=== PATIENT | female | born 1955 | race Caucasian/White ===

== ENCOUNTER 2016-12-12 10:01 | Inpatient (IN) | payer OTHER ==
[~2016-12-12] VITALS: Ht 167.6 cm; Wt 51.0 kg
[~2016-12-12 10:01] MED LIST: ASPI-630 PO; CELE200C PO; CYAN10005 PO; DIAZ5TAB PO; DIPH-121 PO; DULO20CA50 PO; ESOM20CA PO; ESOM40CA PO; HYDR-2766 PO; LACT1CAP29 PO; LINA145C PO; LISI40TA PO; METO50TA2 PO; OXYC-323 PO; PRED15SO46 PO; [UNRECOGNIZED DRUG - CODE] PO
[2016-12-12] MEDS ORDERED: IV NORMAL SALINE 1,000ML 1,000 ML IV SCH (10:24)
[2016-12-12] MEDS ORDERED: 0.9 % SODIUM CHLORIDE 10 ML DISP.SYRIN. IV PRN (10:30)
--- NOTE | 2016-12-12 10:30 | PHYS DOC ---
Past History Past Medical History: GERD, Heart Disease, Other Past Surgical History: Hysterectomy, Knee Replacement, Pacemaker Alcohol Use: None Drug Use: None Adult General Chief Complaint Chief Complaint: HEMATEMESIS/VOMITING BLOOD [facility] HPI Patient is a 61-year-old female here in the emergency department for refill for her chronic narcotic medication oxycodone. Patient has been on chronic narcotics for great deal of time given her chronic left knee pain. She has been tell us that she has been on narcotics secondary to chronic knee pain which she supposedly going to get definitive replacement therapy by a local orthopedic surgeon. She gets her medications from the [place] and only is a 30 day supply took it too aggressively this month and is oriented. This morning in an attempt to treat her discomfort took a dose of aspirin although she knows that she should not take aspirin secondary to her issues with erosive gastritis and peptic ulcer disease she had one episode of nausea and vomiting with hematemesis. She denies any abdominal pain, chest pain, shortness breath or other symptoms. She is in a great deal of pain secondary to her inability to tolerate the oral aspirin and not having oxycodone available. Patient denies any chills, fevers or other symptoms of withdrawal. Patient is very teary-eyed giving history. He also relates a story of having her pacemaker chest wall pocket moved as she lost weight and had migrated to under the axilla and mid recently replaced it to the anterior chest wall 6 weeks ago. She was given tramadol for the symptoms which did improve her symptoms. Physician is from [facility] out of [facility] Dr. Bishop Review of Systems Review of Systems Constitutional: Denies fever or chills [] Eyes: Denies change in visual acuity, redness, or eye pain [] HENT: Denies nasal congestion or sore throat [] Respiratory: Denies cough or shortness of breath [] Cardiovascular: No additional information not addressed in HPI [] GI: Denies abdominal pain, patient complains of nausea vomiting with blood- streaked mucus no diarrhea : Denies dysuria or hematuria [] Musculoskeletal she complains of lower extremity pain, that is chronic in nature. Integument: Denies rash or skin lesions [] Neurologic: Denies headache, focal weakness or sensory changes [] Endocrine: Denies polyuria or polydipsia [] Allergies Allergies Allergies Coded Allergies Type Severity Reaction Last Updated Verified Sulfa (Sulfonamide Antibiotics) Allergy Intermediate 01/07/16 Yes morphine Allergy Intermediate 01/07/16 Yes prochlorperazine Allergy Intermediate 01/07/16 Yes amlodipine Allergy Mild Swelling 01/07/16 Yes cimetidine Adverse Reaction Intermediate Constipation 01/07/16 Yes Physical Exam Physical Exam Constitutional: Well developed, well nourished, no acute distress, non-toxic appearance. [] HENT: Normocephalic, atraumatic, bilateral external ears normal, oropharynx moist, no oral exudates, nose normal. [] Eyes: PERRLA, EOMI, conjunctiva normal, no discharge. [] Neck: Normal range of motion, no tenderness, supple, no stridor. [] Cardiovascular:Heart rate regular rhythm, no murmur [] Lungs & Thorax: Bilateral breath sounds clear to auscultation [] Abdomen: Bowel sounds normal, soft, no tenderness, no masses, no pulsatile masses. [] Skin: Warm, dry, no erythema, no rash. [] Back: No tenderness, no CVA tenderness. [] Extremities: No tenderness, no cyanosis, no clubbing, ROM intact, no edema. [] Neurologic: Alert and oriented X 3, normal motor function, normal sensory function, no focal deficits noted. [] Psychologic: Affect normal, judgement normal, mood normal. [] EKG EKG []EKG timed 10:57 AM demonstrates a heart rate of 71 normal sinus rhythm with frequent PVCs. Was 170 which is normal. QRS width is 76 which is normal QTC is 470 which is mildly elevated. There is a left axis deviation noted with this EKG and some nonseptic T-wave inversions in the anterior leads. EKG read by me Dr. Colunga Radiology/Procedures Radiology/Procedures [] Course & Med Decision Making Course & Med Decision Making Pertinent Labs and Imaging studies reviewed. (See chart for details) Patient presents with intractable nausea and vomiting after using aspirin this morning to treat her pain although she is supposedly using daily oxycodone she ran out of her medications yesterday. Her symptoms is gotten progressively worse to the point where she was intractable pain was so bad she is inconsolable. She was crying upon arrival complaining about chronic knee pain. She had one episode of nausea and vomiting described as hematemesis. Although she has not vomited here in the emergency department her laboratory work as been ordered to rule out GI bleed. Time is now 11 AM patient is still having pain but much improved. With any kind of movement of the left shoulder she complains of the chest wall pain which she had the pouch of her pacemaker changed. She has been given a dose of Ativan to help with her anxiety and a dose of Dilaudid to help with her symptoms. Time is now 11:45 AM although the patient's feeling markedly better he has been is concerning we have not given her more narcotics. He has been and I sat and talked about long-term treatment for chronic narcotic use. I described her need to be admitted to the hospital to help her deal with the symptoms and attempt to use other modalities other than opiate narcotics to treat her symptoms. Although she is still complaining of pain is markedly improved and as I described to the it is subjective in nature. Her vital signs did not indicate that she is going through acute withdrawal at this point as she is not tachycardic she is not showing any signs of piloerection or chills. Patient has no vomiting at this time Reviewed her laboratory work which demonstrates Laboratory Tests Test 12/12/16 10:55 White Blood Count 6.8 x10^3/uL (4.0-11.0) Red Blood Count 4.19 x10^6/uL (3.50-5.40) Hemoglobin 12.4 g/dL (12.0-15.5) Hematocrit 37.5 % (36.0-47.0) Mean Corpuscular Volume 89 fL (79-100) Mean Corpuscular Hemoglobin 30 pg (25-35) Mean Corpuscular Hemoglobin Concent 33 g/dL (31-37) Red Cell Distribution Width 15.2 % (11.5-14.5) H Platelet Count 275 x10^3/uL (140-400) Neutrophils (%) (Auto) 62 % (31-73) Lymphocytes (%) (Auto) 29 % (24-48) Monocytes (%) (Auto) 8 % (0-9) Eosinophils (%) (Auto) 1 % (0-3) Basophils (%) (Auto) 1 % (0-3) Neutrophils # (Auto) 4.2 x10^3uL (1.8-7.7) Lymphocytes # (Auto) 2.0 x10^3/uL (1.0-4.8) Monocytes # (Auto) 0.5 x10^3/uL (0.0-1.1) Eosinophils # (Auto) 0.1 x10^3/uL (0.0-0.7) Basophils # (Auto) 0.1 x10^3/uL (0.0-0.2) Sodium Level 143 mmol/L (136-145) Potassium Level 3.9 mmol/L (3.5-5.1) Chloride Level 108 mmol/L (98-107) H Carbon Dioxide Level 32 mmol/L (21-32) Anion Gap 3 (6-14) L Blood Urea Nitrogen 11 mg/dL (7-20) Creatinine 0.9 mg/dL (0.6-1.0) Estimated GFR (Cockcroft-Gault) 63.2 BUN/Creatinine Ratio 12 (6-20) Glucose Level 103 mg/dL (70-99) H Calcium Level 9.1 mg/dL (8.5-10.1) Total Bilirubin 0.3 mg/dL (0.2-1.0) Aspartate Amino Transferase (AST) 19 U/L (15-37) Alanine Aminotransferase (ALT) 24 U/L (14-59) Alkaline Phosphatase 98 U/L (46-116) Creatine Kinase 44 U/L (26-192) Creatine Kinase MB (Mass) < 0.5 ng/mL (0.0-3.6) Creatine Kinase MB Relative Index 1.1 % (0-4) Troponin I Quantitative < 0.017 ng/mL (0-0.055) Total Protein 6.1 g/dL (6.4-8.2) L Albumin 3.1 g/dL (3.4-5.0) L Albumin/Globulin Ratio 1.0 (1.0-1.7) Lipase 114 U/L (73-393) []Patient's troponin is negative, lipase is normal, patient is an elevated glucose. Patient's CBC is normal. He has a patient's continued condition although I do not she is is delirious secondary to pain out of control I believe there is some issue with chronic narcotic use although not to follow the patient that we need to address and a more serious manner. Patient's family is willing to be admitted to the hospital to help while the symptoms are still present and encouraged the family to have a discussion with the primary care physician about the intent of getting her off narcotics completely. I also encouraged family and if they are not happy with the relation to have with her present orthopedic surgeon believes is nothing wrong with the knee that he was placed back in 2016 to find another opinion. Preconstruction Manager note: Hospital livestock nutrition territory manager time 11:59 AM Preconstruction Manager called at of the service Dr. Gerry ARRIAGA return call at 12 3 PM Consult called back at Discussed the case I presented and they agreed with admission. Time of acceptance 12:03 PM agreed with treatment for hematemesis and likely narcotic withdrawal symptoms.. Dragon Disclaimer Dragon Disclaimer This chart was dictated in whole or in part using Voice Recognition software in a busy, high-work load, and often noisy Emergency Department environment. It may contain unintended and wholly unrecognized errors or omissions. Departure Departure: Impression: Primary Impression: Chest wall pain Additional Impressions: Chronic narcotic use Withdrawal symptoms, drug or narcotic Nausea and vomiting Hematemesis Disposition: ADMITTED INPATIENT Admitting Physician: Humza Lenz Condition: GUARDED Referrals: FARHAN HERNANDEZ DO (PCP) Problem Qualifiers ALBER COLUNGA MD Dec 12, 2016 10:30
[2016-12-12] MEDS ORDERED: ONDANSETRON PF 4 MG/2 ML VIAL. IV ONE (10:45)
[2016-12-12] MEDS: HYDROmorphone PF 1 MG/ML DISP.SYRIN IV/SQ PRN ×2 (10:58→15:04)
--- NOTE | 2016-12-12 11:07 | RAD ---
EXAM: Abdomen acute complete. HISTORY: Nausea and vomiting. COMPARISON: 01/12/2015. FINDINGS: A frontal view of the chest and frontal upright and supine views of the abdomen are obtained. There is no infiltrate, effusion or pneumothorax. The heart is normal in size. There is a cardiac pacemaker with leads terminating in expected position. There is increased opacity overlying the lateral right mid thorax due to overlying artifact. There is gas and stool within the colon. There are air-filled loops of nondistended small bowel. There is no evidence of obstruction. There is no free air. There is degenerative change throughout the spine. There is curvilinear calcification overlying the left abdomen and sacrum. IMPRESSION: 1. No acute pulmonary finding. 2. Nonobstructive bowel gas pattern.
[2016-12-12 11:21] LABS: BASO # 0.1 x10^3/uL (0.0-0.2); BASO % 1 % (0-3); EOS # 0.1 x10^3/uL (0.0-0.7); EOS % 1 % (0-3); HEMATOCRIT 37.5 % (36.0-47.0); HEMOGLOBIN 12.4 g/dL (12.0-15.5); LYMPH % 29 % (24-48); MEAN CORPUSCULAR HEMOGLOBIN 30 pg (25-35); MEAN CORPUSCULAR HGB CONC 33 g/dL (31-37); MEAN CORPUSCULAR VOLUME 89 fL (79-100); MONO # 0.5 x10^3/uL (0.0-1.1); MONO % 8 % (0-9); NEUT # 4.2 x10^3uL (1.8-7.7); NEUT % 62 % (31-73); PLATELET COUNT 275 x10^3/uL (140-400); RED BLOOD COUNT 4.19 x10^6/uL (3.50-5.40); RED CELL DISTRIBUTION WIDTH 15.2 % (11.5-14.5); WHITE BLOOD COUNT 6.8 x10^3/uL (4.0-11.0)
[2016-12-12] MEDS ORDERED: LORazepam 2 MG/ML VIAL IV ONE (11:30)
[2016-12-12 11:43] LABS: ALBUMIN 3.1 g/dL (3.4-5.0); ALK PHOS 98 U/L (46-116); ALT (SGPT) 24 U/L (14-59); ANION GAP 3 (6-14); AST (SGOT) 19 U/L (15-37); BLOOD UREA NITROGEN 11 mg/dL (7-20); BUN/CREATININE RATIO 12 (6-20); CALCIUM 9.1 mg/dL (8.5-10.1); CARBON DIOXIDE 32 mmol/L (21-32); CHLORIDE 108 mmol/L (98-107); CREATINE KINASE 44 U/L (26-192); CREATININE 0.9 mg/dL (0.6-1.0); GFR 63.2; GLUCOSE 103 mg/dL (70-99); LIPASE 114 U/L (73-393); POTASSIUM 3.9 mmol/L (3.5-5.1); SODIUM 143 mmol/L (136-145); TOTAL BILIRUBIN 0.3 mg/dL (0.2-1.0); TOTAL PROTEIN 6.1 g/dL (6.4-8.2)
[2016-12-12] MEDS ORDERED: ONDANSETRON PF 4 MG/2 ML VIAL. IV PRN (12:15)
[2016-12-12 12:30] LABS: BILIRUBIN,URINE NEG (NEG); CLARITY,URINE CLEAR; COLOR,URINE STRAW; GLUCOSE,URINE NEG (NEG)
[2016-12-12] MEDS ORDERED: cloNIDine HCL 0.1 MG TABLET PO ONE (12:30)
[2016-12-12 12:31] LABS: BACTERIA,URINE 0 /HPF (0-FEW); NITRITE,URINE NEG (NEG); RBC,URINE 0 /HPF (0-2); SQUAMOUS EPITHELIAL CELL,UR OCC /LPF; UROBILINOGEN,URINE 0.2 mg/dL (0.2 mg/dL); WBC,URINE RARE /HPF (0-4)
--- NOTE | 2016-12-12 12:44 | EKG ---
[address] [address] Test Date: 2016-12-12 Test Time: 10:57:40 Pat Name: NEISHA WILKERSON Department: Room: Gender: F Drug Safety Physician: : [id number] Requested By: ALBER COLUNGA Order Number: [id number] Reading MD: Measurements Intervals [place] Rate: 71 P: 38 VT: 172 QRS: -11 QRSD: 76 T: 2 QT: 440 QTc: 478 Interpretive Statements SINUS RHYTHM VENTRICULAR PREMATURE COMPLEX(ES) ATRIAL PREMATURE COMPLEX(ES) LEFTWARD AXIS PROLONGED QT ABNORMAL ECG RI6.01 No previous ECG available for comparison
[2016-12-12 13:23] VITALS: BP 140/76
[2016-12-12] MEDS ORDERED: HYDR12.53 PO (13:53)
[2016-12-12] MEDS ORDERED: BIOT1CAP3 PO (13:53)
[2016-12-12] MEDS ORDERED: POTA10TA10 PO (13:54)
[2016-12-12] MEDS ORDERED: LINA290C PO (14:03)
[2016-12-12] MEDS ORDERED: METO100T2 PO (14:03)
[2016-12-12] MEDS ORDERED: SPIR25TA3 PO (14:03)
[2016-12-12] MEDS ORDERED: DIAZ5TAB PO (14:03)
[2016-12-12] MEDS ORDERED: PANT40TA3 PO (14:13)
[2016-12-12] MEDS: IV NORMAL SALINE 1,000ML 1,000 ML IV SCH (17:51)
[2016-12-12 18:52] VITALS: BP 100/61
[2016-12-12] MEDS: METOPROLOL TART IMMED RELEASE 50 MG TABLET PO SCH (20:20)
[2016-12-12] MEDS: oxyCODONE/APAP 10/325 1 TAB TABLET PO PRN (20:20)
--- NOTE | 2016-12-12 21:37 | HP ---
ADMIT DATE: 12/12/2016 HISTORY OF PRESENT ILLNESS: The patient is a 61-year-old female patient who was brought to the Emergency Department for refill of her chronic narcotic medication, oxycodone. The patient has been on chronic narcotics for a great deal of time given her chronic left knee pain. She has been on narcotics secondary to chronic knee pain, which she is supposed to be going to get definitive replacement therapy by a local orthopedic surgeon. She apparently underwent first right total knee arthroplasty in 2013 and revision 6 months later and since then has this chronic pain. She is followed by Dr. Najera at [facility]. She apparently ran out of her pain medication that she gets from [facility] for 30-day supply and apparently she took multiple doses of aspirin, although she knows that she should not take aspirin secondary to her issues with erosive gastritis and peptic ulcer and has had recurrent episodes of nausea, vomiting with hematemesis; however, she denied any abdominal pain, chest pain, shortness of breath or other symptoms. She is in a great deal of pain secondary to her inability to tolerate oral aspirin, not having oxycodone available. The patient denied any chills, fever or other symptoms of withdrawal. She also had a permanent pacemaker originally placed about 15 years ago and the generator was changed twice, the last one was done about 6 weeks ago as the pacemaker eroded through the skin and has to be changed to a different position as the certified marine mechanic created a new pocket, as she has lost weight. According to her, her maximum weight was 360 and she is now on only 104. She normally follows with [facility] out of [place], [place] and her primary care physician is ____. PAST MEDICAL HISTORY: Significant for osteoarthritis. She has chronic pain in her right knee for which she underwent a right total knee arthroplasty in 2013. She has what seems to be a revision 6 months later; however, she continued to have pain in this right knee. She also has chronic MRSA. She has coronary artery disease. She has dual chamber pacemaker and has had CABG. She is under the care of Dr. Duran at [facility]. She also has chronic gastroesophageal reflux disease, back pain, B12 deficiency, atrial fibrillation, heart valve issues with open heart surgery and aortic valve repair and congestive heart failure. ALLERGIES: She is allergic to SULFA, AMLODIPINE, FAMOTIDINE, MORPHINE AND COMPAZINE. MEDICATIONS: She is currently on following medications: She is on cyanocobalamin 1000 mcg 1 tablet p.o. daily. She is on diazepam 5 mg daily, lactobacillus for probiotic 2 tablets daily, linaclotide 290 mcg capsule once a day. She is on metoprolol tartrate 100 mg p.o. b.i.d., Protonix 40 mg daily, spironolactone 25 mg daily. REVIEW OF SYSTEMS: The patient denied any blurring of vision. She apparently has cataracts, but denied any glaucoma or macular degeneration. Denied any earache, tinnitus or sensorineural deafness. Denied any nosebleeds, stuffy nose or postnasal drip. Denied any sore throat, sore tongue, toothache, hoarseness of voice or difficulty swallowing. She did have recurrent bouts of nausea, vomiting, initially coffee-ground and then fresh blood. Denied any diarrhea. She has chronic constipation. Denied any dysuria, frequency or hematuria. Denied any chest pain, shortness of breath, orthopnea or paroxysmal nocturnal dyspnea. Denied any cough, phlegm or hemoptysis. Denied any chills, rigors or fever. PHYSICAL EXAMINATION: GENERAL: On arrival to the Emergency Room, she was pale, extremely cachectic, but not jaundiced, cyanosis, lymphadenopathy, or thyromegaly. No jugular venous distension. No lower limb edema. VITAL SIGNS: Her heart rate was 78, blood pressure 146/90, temperature was 98.3, respiratory rate was 16 and oxygen saturation was 100% on room air. HEENT: Showed normocephalic, atraumatic. NECK: Supple. HEART: Showed normal first and second heart sounds with no gallop, rub or murmur. CHEST: Clear to auscultation. No crepitation or rhonchi. ABDOMEN: Scaphoid, soft, nontender. No guarding or rigidity. No organomegaly. Hernial orifices intact. Bowel sounds normal. NEUROLOGIC: She was awake, alert, responding appropriately. All her cranial nerves intact. EXTREMITIES: She moves extremities without difficulty, although she has marked muscle wasting and weakness. LABORATORY DATA: Her lab work on arrival to the Emergency Room showed a white cell count of 6800, hemoglobin 12.4, hematocrit 37.5, MCV 89 and platelet count 275,000. Her chemistry showed a serum sodium of 143, potassium 3.9, chloride 108, bicarbonate 32, anion gap of 3, BUN 11, creatinine 0.9, estimated GFR was 63 mL per minute. Her calcium was 9.1. Total bilirubin, AST, ALT, alkaline phosphatase were normal. Total protein was 6.1, albumin 3.1 and serum lipase 114. Urinalysis was unremarkable. IMPRESSION: In summary, this is a 61-year-old female patient who came with recurrent bouts of nausea, vomiting and hematemesis. She also has chronic narcotic use, chest wall pain that started around pacemaker that was recently moved, she has lost weight and has moved to the left axillary area. She also has withdrawal symptoms. PLAN: To monitor her H and H every 6 hours. Continue with pain medication. Continue with hydromorphone. We will continue with clear liquid diet for now and continue with IV Protonix; if obviously her H and H drops, we will transport her to another facility if she requires upper GI endoscopy. JENIFFER CAMACHO MD DR: GUERLINE/erika JOB#: [id number] / [id number]
[2016-12-12 22:47] LABS: HEMATOCRIT 29.9 % (36.0-47.0); HEMOGLOBIN 9.9 g/dL (12.0-15.5)
[2016-12-12 23:19] VITALS: BP 114/63
[2016-12-13] MEDS: IV NORMAL SALINE 1,000ML 1,000 ML IV SCH (04:27)
[2016-12-13] MEDS: oxyCODONE/APAP 10/325 1 TAB TABLET PO PRN ×2 (05:18→12:29)
[2016-12-13 05:34] VITALS: BP 141/73
[2016-12-13 06:36] LABS: ALBUMIN 2.4 g/dL (3.4-5.0); CALCIUM 8.1 mg/dL (8.5-10.1); CREATININE 0.8 mg/dL (0.6-1.0); GFR 72.4; POTASSIUM 3.7 mmol/L (3.5-5.1); TOTAL BILIRUBIN 0.3 mg/dL (0.2-1.0); TOTAL PROTEIN 4.9 g/dL (6.4-8.2)
[2016-12-13 06:37] LABS: BASO # 0.1 x10^3/uL (0.0-0.2); BASO % 1 % (0-3); EOS # 0.1 x10^3/uL (0.0-0.7); EOS % 2 % (0-3); HEMATOCRIT 31.3 % (36.0-47.0); HEMOGLOBIN 10.6 g/dL (12.0-15.5); LYMPH # 2.8 x10^3/uL (1.0-4.8); LYMPH % 42 % (24-48); MEAN CORPUSCULAR HEMOGLOBIN 30 pg (25-35); MEAN CORPUSCULAR HGB CONC 34 g/dL (31-37); MEAN CORPUSCULAR VOLUME 90 fL (79-100); MONO # 0.6 x10^3/uL (0.0-1.1); MONO % 9 % (0-9); NEUT % 46 % (31-73); PLATELET COUNT 210 x10^3/uL (140-400); RED CELL DISTRIBUTION WIDTH 15.4 % (11.5-14.5); WHITE BLOOD COUNT 6.5 x10^3/uL (4.0-11.0)
[2016-12-13] MEDS ORDERED: LINACLOTIDE 145 MCG CAPSULE. PO SCH (07:00)
[2016-12-13] MEDS: METOPROLOL TART IMMED RELEASE 50 MG TABLET PO SCH (08:23)
[2016-12-13] MEDS ORDERED: diazePAM 5 MG TABLET PO SCH (09:00)
[2016-12-13] MEDS ORDERED: PANTOPRAZOLE 40 MG TABLET. PO SCH (09:00)
[2016-12-13] MEDS ORDERED: CYANOCOBALAMIN (VITAMIN B-12) 1,000 MCG TABLET. PO SCH (09:00)
[2016-12-13] MEDS ORDERED: FLU VACC QS2017-18 (36MOS+)/PF 0.5 ML SYRINGE. VAX IM ONE (09:00)
[2016-12-13] MEDS ORDERED: NON FORMULARY ITEM (Biotin 1 MG) PO SCH (09:00)
[2016-12-13] MEDS ORDERED: SPIRONOLACTONE 25 MG TABLET PO SCH (09:00)
[2016-12-13] MEDS ORDERED: LACTOBACILLUS ACIDOPH & BULGAR 1 TABLET. PO SCH (09:00)
[2016-12-13 12:38] VITALS: BP 159/74
[2016-12-13] MEDS ORDERED: OXYC-328 PO (13:13)
--- NOTE | 2016-12-13 23:48 | DS ---
DATE OF DISCHARGE: 12/13/2016 HOSPITAL COURSE: The patient was admitted through the Emergency Room with complaints of hematemesis. According to her, she ran out of her Percocet and started using aspirin. According to her, she has taken a total of 6 aspirin, although she is intolerant to aspirin and she has had peptic ulcer disease before. She had multiple episodes of vomiting and also according to her, hematemesis, although that was not witnessed in the Emergency Room or while an inpatient here, she remained stable hemodynamically. Her H and H remained stable throughout her stay here, probably some hemodilution due to IV fluids when she came to the Emergency Room. She has been tolerating her food without difficulty. She definitely has no further episodes of nausea, vomiting. She has been up and about and a decision was made to discharge her home, to continue all her medication together with pain medication and also we gave her the name and address, and telephone number of Dr. Xavi Ramirez, clerk specialist to help her with chronic pain. PHYSICAL EXAMINATION: GENERAL: When I saw her this afternoon, she looked well and was clearly in no apparent respiratory distress. She was pale, but no jaundice, cyanosis, lymphadenopathy or thyromegaly. No jugular venous distention. No limb edema. VITAL SIGNS: Her heart rate was 65, blood pressure was 159/74, temperature was 97.8, respiratory rate was 15 and oxygen saturation was 100%. HEENT: Showed normocephalic, atraumatic. NECK: Supple. HEART: Showed normal first and second heart sounds with no gallop, rub or murmur. CHEST: Clear to auscultation. No crepitation or rhonchi. ABDOMEN: Scaphoid, soft, nontender. No guarding or rigidity. No organomegaly. Hernial orifices intact. Bowel sounds normal. NEUROLOGIC: She was awake, alert, responding appropriately. Cranial nerves intact. She moves extremities without difficulty. Her intake over the last 24 hours was 2413, no output recorded. LABORATORY DATA: As of this morning showed a white cell count of 6500, hemoglobin 11, hematocrit 31, MCV 90 and platelet count 210,000 with normal manual differential. Her chemistry showed a serum sodium 146, potassium 3.7, chloride 111, BUN 29, creatinine 6, ____ creatinine 0.8, estimated GFR was 72 mL. Her glucose was 87, calcium was 8.1. Total bilirubin, AST, ALT, alkaline phosphatase were normal. Total protein was 4.9, albumin was 2.4. DISCHARGE MEDICATIONS: The patient was discharged home to continue on following medications: Oxycodone/APAP 10/325 mg one tablet 3 times a day, biotin 1 mg capsule daily, cyanocobalamin for vitamin B12 1000 mcg tablet once a day, diazepam 5 mg daily, Lactobacillus acidophilus 2 capsules once a day, linaclotide 290 mcg p.o. daily, metoprolol tartrate 100 mg twice a day, Protonix 40 mg once a day and spironolactone 25 mg p.o. daily. FINAL DISCHARGE DIAGNOSES: Nonsteroidal anti-inflammatory medication and aspirin-induced upper GI bleed. The hematemesis has not been witnessed in the Emergency Room or in the hospital. The patient's hemoglobin and hematocrit remained stable. She remained hemodynamically stable. She was given clear instruction to avoid nonsteroidal anti-inflammatory medication. Other medical problems include severe osteoarthritis, status post right total knee arthroplasty with revision; coronary artery disease, sick sinus syndrome, status post placement of a permanent pacemaker; chronic gastroesophageal reflux disease, low back pain, B12 deficiency, atrial fibrillation, congestive heart failure. JENIFFER CAMACHO MD DR: GUERLINE/erika JOB#: [id number] / [id number]
== END 2016-12-13 13:03 | disposition home or self-care (01) | DRG 377 ==
LOC: ER 10:01 → ICU 12:10 → UNDOADMIN 12:10
PROVIDERS: ADMIT Internal Medicine; ATTEND Internal Medicine
DX: K92.2 Gastrointestinal hemorrhage, unspecified (principal); E43 Unspecified severe protein-calorie malnutrition; I50.9 Heart failure, unspecified; F19.939 Other psychoactive substance use, unspecified with withdrawal, unspecified; G89.29 Other chronic pain; I48.91 Unspecified atrial fibrillation; M25.562 Pain in left knee; E53.8 Deficiency of other specified B group vitamins; I25.10 Atherosclerotic heart disease of native coronary artery without angina pectoris; K21.9 Gastro-esophageal reflux disease without esophagitis; T39.395A Adverse effect of other nonsteroidal anti-inflammatory drugs [NSAID], initial encounter; T39.015A Adverse effect of aspirin, initial encounter; M19.90 Unspecified osteoarthritis, unspecified site; M54.5 Low back pain; Z96.651 Presence of right artificial knee joint; R07.89 Other chest pain; Z79.891 Long term (current) use of opiate analgesic; Z87.11 Personal history of peptic ulcer disease; Z95.0 Presence of cardiac pacemaker; Z95.1 Presence of aortocoronary bypass graft; Z22.322 Carrier or suspected carrier of Methicillin resistant Staphylococcus aureus; Z88.6 Allergy status to analgesic agent; Z88.1 Allergy status to other antibiotic agents; Z88.2 Allergy status to sulfonamides; Z88.8 Allergy status to other drugs, medicaments and biological substances; Y92.89 Other specified places as the place of occurrence of the external cause; Z90.710 Acquired absence of both cervix and uterus
CPT/HCPCS: 36415; 74022; 80053; 81001; 82553; 82607; 83690; 84443; 84484; 85014; 85018; 85025; 87086; 87641; 90686; 93005; 96361; 96374; 96375; J1170; J2060; J2405; 99285-25; J7030

== ENCOUNTER → 2017-01-18 | Outpatient (CLI) | payer OTHER ==
[~2017-01-18] MED LIST changes: +BIOT1CAP3 PO; +HYDR12.53 PO; +LINA290C PO; +METO100T2 PO; +OXYC-328 PO; +PANT40TA3 PO; +POTA10TA10 PO; +SPIR25TA3 PO
== END | disposition home or self-care (01) ==
LOC: SURG 13:03
PROVIDERS: ATTEND Anesthesiology Pain Medicine
DX: G89.4 Chronic pain syndrome (principal); M25.561 Pain in right knee; I10 Essential (primary) hypertension; F11.20 Opioid dependence, uncomplicated; Z96.651 Presence of right artificial knee joint
CPT/HCPCS: 99204

== ENCOUNTER 2017-05-18 19:23 | Inpatient (IN) | payer OTHER ==
[~2017-05-18] VITALS: Ht 167.6 cm; Wt 60.0 kg
[~2017-05-18 19:23] MED LIST changes: -METO100T2 PO; +METO100T7 PO; -METO50TA2 PO; +METO50TA6 PO
[2017-05-18] MEDS ORDERED: IV NORMAL SALINE 1,000ML 1,000 ML IV ONE (20:00)
[2017-05-18] MEDS ORDERED: LIDO:MAALOX 1:1 20 ML SINGLE DOSE PO ONE (20:00)
[2017-05-18 20:01] LABS: BASO # 0.1 x10^3/uL (0.0-0.2); BASO % 1 % (0-3); EOS % 0 % (0-3); HEMATOCRIT 36.2 % (36.0-47.0); HEMOGLOBIN 11.6 g/dL (12.0-15.5); LYMPH # 1.3 x10^3/uL (1.0-4.8); LYMPH % 9 % (24-48); MEAN CORPUSCULAR HEMOGLOBIN 26 pg (25-35); MEAN CORPUSCULAR HGB CONC 32 g/dL (31-37); MEAN CORPUSCULAR VOLUME 81 fL (79-100); MONO % 7 % (0-9); NEUT # 11.5 x10^3uL (1.8-7.7); NEUT % 83 % (31-73); PLATELET COUNT 239 x10^3/uL (140-400); RED BLOOD COUNT 4.49 x10^6/uL (3.50-5.40); RED CELL DISTRIBUTION WIDTH 15.1 % (11.5-14.5); WHITE BLOOD COUNT 13.8 x10^3/uL (4.0-11.0)
[2017-05-18 20:14] LABS: ALBUMIN 3.9 g/dL (3.4-5.0); ALBUMIN/GLOBULIN RATIO 1.2 (1.0-1.7); CALCIUM 9.7 mg/dL (8.5-10.1); CREATININE 0.9 mg/dL (0.6-1.0); MAGNESIUM 1.8 mg/dL (1.8-2.4); TOTAL BILIRUBIN 0.5 mg/dL (0.2-1.0); TOTAL PROTEIN 7.2 g/dL (6.4-8.2)
[2017-05-18 20:41] LABS: POTASSIUM 2.7 mmol/L (3.5-5.1)
[2017-05-18] MEDS ORDERED: POTASSIUM CHLORIDE 20MEQ 100 ML IV ONE (21:00)
--- NOTE | 2017-05-18 21:07 | PHYS DOC ---
Past History Past Medical History: Anxiety, CAD, Depression, GERD, Heart Disease, Hypertension, Other Past Surgical History: Gastric Bypass, Hysterectomy, Knee Replacement, Pacemaker Alcohol Use: None Drug Use: None Adult General Chief Complaint Chief Complaint: ABDOMINAL PAIN HPI HPI Patient is a 62 year old F who presents with vomiting and abdominal pain. Nasrin states that her symptoms started 3-4 days ago with abdominal pain and vomiting containing blood. She feels that her symptoms have persisted during this time. She has been unable to eat or drink anything other than a small egg drop soup and some crackers. She does have a history of a gastric bypass approximately 14 years ago. She also has chronic pain for which she uses opiate pain medication. She does have regular stools with use of a laxative daily. Her last bowel movement was yesterday and she notes that it was a normal formed brown stool. She denies melena. She has no other associated symptoms at this time. She has no other exacerbating or alleviating factors. Review of Systems Review of Systems Constitutional: Denies fever or chills [] Eyes: Denies change in visual acuity, redness, or eye pain [] HENT: Denies nasal congestion or sore throat [] Respiratory: Denies cough or shortness of breath [] Cardiovascular: No additional information not addressed in HPI [] GI: Negative except history of present illness : Denies dysuria or hematuria [] Musculoskeletal: Denies back pain or joint pain [] Integument: Denies rash or skin lesions [] Neurologic: Denies headache, focal weakness or sensory changes [] Endocrine: Denies polyuria or polydipsia [] All other systems were reviewed and found to be within normal limits, except as documented in this note. Family History Family History No pertinent family medical history was reported Current Medications Current Medications Current medications reviewed Current Medications Medications (Trade) Dose Ordered Sig/Hawa Start Time Stop Time Status Last Admin Dose Admin Multi-Ingredient Mouthwash/Gargle (Gi Cocktail) 20 ml 1X ONCE 05/18/17 20:00 05/18/17 20:01 DC 05/18/17 20:00 20 ML Potassium Chloride 100 ml @ 50 mls/hr 1X ONCE 05/18/17 21:00 05/18/17 22:59 Sodium Chloride 1,000 ml @ 1,000 mls/hr 1X ONCE 05/18/17 20:00 05/18/17 20:59 DC 05/18/17 20:00 1,000 MLS/HR Allergies Allergies Allergies Coded Allergies Type Severity Reaction Last Updated Verified Sulfa (Sulfonamide Antibiotics) Allergy Intermediate 01/07/16 Yes morphine Allergy Intermediate 01/07/16 Yes prochlorperazine Allergy Intermediate 01/07/16 Yes amlodipine Allergy Mild Swelling 01/07/16 Yes cimetidine Adverse Reaction Intermediate Constipation 01/07/16 Yes Physical Exam Physical Exam Constitutional: Well developed, well nourished, mild distress, non-toxic appearance. [] HENT: Normocephalic, atraumatic, Eyes: PERRLA, EOMI, conjunctiva normal, no discharge. [] Neck: Normal range of motion, no tenderness, supple, no stridor. [] Cardiovascular:Heart rate regular rhythm, Lungs & Thorax: Bilateral breath sounds clear to auscultation [] Abdomen: Bowel sounds normal, soft, no masses, no pulsatile masses. [] Mid epigastric tenderness to palpation Skin: Warm, dry, no erythema, no rash. [] Back: No tenderness, no CVA tenderness. [] Extremities: No tenderness, no cyanosis, no clubbing, ROM intact, no edema. [] Neurologic: Alert and oriented X 3, normal motor function, normal sensory function, no focal deficits noted. [] Psychologic: Affect normal, judgement normal, mood normal. [] Current Patient Data Vital Signs Vital Signs Date Time Temp Pulse Resp B/P (MAP) Pulse Ox O2 Delivery O2 Flow Rate FiO2 05/18/17 19:23 97.5 79 22 98 Room Air Vital Signs Date Time Temp Pulse Resp B/P (MAP) Pulse Ox O2 Delivery O2 Flow Rate FiO2 05/18/17 19:23 97.5 79 22 98 Room Air Lab Results Laboratory Tests Test 05/18/17 19:30 05/18/17 19:40 Lipase 69 U/L (73-393) L White Blood Count 13.8 x10^3/uL (4.0-11.0) H Red Blood Count 4.49 x10^6/uL (3.50-5.40) Hemoglobin 11.6 g/dL (12.0-15.5) L Hematocrit 36.2 % (36.0-47.0) Mean Corpuscular Volume 81 fL (79-100) Mean Corpuscular Hemoglobin 26 pg (25-35) Mean Corpuscular Hemoglobin Concent 32 g/dL (31-37) Red Cell Distribution Width 15.1 % (11.5-14.5) H Platelet Count 239 x10^3/uL (140-400) Neutrophils (%) (Auto) 83 % (31-73) H Lymphocytes (%) (Auto) 9 % (24-48) L Monocytes (%) (Auto) 7 % (0-9) Eosinophils (%) (Auto) 0 % (0-3) Basophils (%) (Auto) 1 % (0-3) Neutrophils # (Auto) 11.5 x10^3uL (1.8-7.7) H Lymphocytes # (Auto) 1.3 x10^3/uL (1.0-4.8) Monocytes # (Auto) 1.0 x10^3/uL (0.0-1.1) Eosinophils # (Auto) 0.0 x10^3/uL (0.0-0.7) Basophils # (Auto) 0.1 x10^3/uL (0.0-0.2) Sodium Level 144 mmol/L (136-145) Potassium Level 2.7 mmol/L (3.5-5.1) *L Chloride Level 104 mmol/L (98-107) Carbon Dioxide Level 30 mmol/L (21-32) Anion Gap 10 (6-14) Blood Urea Nitrogen 11 mg/dL (7-20) Creatinine 0.9 mg/dL (0.6-1.0) Estimated GFR (Cockcroft-Gault) 63.0 BUN/Creatinine Ratio 12 (6-20) Glucose Level 120 mg/dL (70-99) H Calcium Level 9.7 mg/dL (8.5-10.1) Magnesium Level 1.8 mg/dL (1.8-2.4) Total Bilirubin 0.5 mg/dL (0.2-1.0) Aspartate Amino Transferase (AST) 22 U/L (15-37) Alanine Aminotransferase (ALT) 18 U/L (14-59) Alkaline Phosphatase 116 U/L (46-116) Total Protein 7.2 g/dL (6.4-8.2) Albumin 3.9 g/dL (3.4-5.0) Albumin/Globulin Ratio 1.2 (1.0-1.7) EKG EKG Poor tracing due to motion artifact. Normal sinus rhythm with no ST changes noted Course & Med Decision Making Course & Med Decision Making Pertinent Labs and Imaging studies reviewed. (See chart for details) She was given pain medication for her chronic knee pain not her abdominal pain. She had minimal abdominal findings on exam including minimal tenderness to palpation. Imaging was deferred at this time. Dragon Disclaimer Dragon Disclaimer This electronic medical record was generated, in whole or in part, using a voice recognition dictation system. Departure Departure: Impression: Primary Impression: Upper GI bleed Additional Impressions: Gastritis Hypokalemia Disposition: ADMITTED INPATIENT Condition: STABLE Referrals: FARHAN HERNANDEZ DO (PCP) Problem Qualifiers Additional Impressions: Gastritis Gastritis type: unspecified gastritis Chronicity: acute Gastritis bleeding : with bleeding Qualified Codes: K29.01 - Acute gastritis with bleeding HIMANSHU SOUSA MD May 18, 2017 21:07
[2017-05-18] MEDS ORDERED: ELECTROLYTE (NON-ICU) PROTOCOL MC PRN (22:00)
[2017-05-18] MEDS ORDERED: ONDANSETRON PF 4 MG/2 ML VIAL. IV PRN (22:00)
[2017-05-18] MEDS ORDERED: PANTOPRAZOLE IV 40 MG VIAL. IVP ONE (22:30)
[2017-05-18 23:30] VITALS: BP 163/65
--- NOTE | 2017-05-19 00:06 | NUR ---
The patient, NEISHA WILKERSON, 62 y/o, F admitted by JENIFFER CAMACHO MD, was given written information regarding hospital policies, unit procedures and contact persons. Valuables were checked and logged. Will continue to monitor.
[2017-05-19] MEDS ORDERED: POTASSIUM CL 20MEQ D5-0.45NACL 1,000 ML IV SCH (00:30)
[2017-05-19] MEDS ORDERED: TRAM50TA PO (01:15)
[2017-05-19 05:25] VITALS: BP 161/74
--- NOTE | 2017-05-19 05:27 | NUR ---
Pt forgetful at times. Asked what day it was and states, "Well I don't know. But it's my daughter's birthday month." Pt then looked at her ID bracelet when asked her name and date of . Will continue to monitor.
[2017-05-19 07:44] LABS: CALCIUM 8.6 mg/dL (8.5-10.1); CREATININE 0.6 mg/dL (0.6-1.0); GFR 100.6; POTASSIUM 3.3 mmol/L (3.5-5.1)
[2017-05-19 07:46] LABS: BASO % 0 % (0-3); EOS % 0 % (0-3); HEMATOCRIT 30.3 % (36.0-47.0); HEMOGLOBIN 9.9 g/dL (12.0-15.5); LYMPH # 1.4 x10^3/uL (1.0-4.8); LYMPH % 17 % (24-48); MEAN CORPUSCULAR HEMOGLOBIN 26 pg (25-35); MEAN CORPUSCULAR HGB CONC 33 g/dL (31-37); MEAN CORPUSCULAR VOLUME 81 fL (79-100); MONO # 0.9 x10^3/uL (0.0-1.1); MONO % 10 % (0-9); NEUT # 6.2 x10^3uL (1.8-7.7); NEUT % 73 % (31-73); PLATELET COUNT 199 x10^3/uL (140-400); RED BLOOD COUNT 3.75 x10^6/uL (3.50-5.40); RED CELL DISTRIBUTION WIDTH 15.2 % (11.5-14.5); WHITE BLOOD COUNT 8.6 x10^3/uL (4.0-11.0)
[2017-05-19 09:57] VITALS: BP 172/82
[2017-05-19] MEDS ORDERED: POTASSIUM CHLORIDE 20 MEQ/15 ML ORAL LIQUID. PO ONE (10:00)
[2017-05-19] MEDS: HYDROmorphone PF 2 MG/ML VIAL IV PRN ×3 (10:15→18:32)
[2017-05-19] MEDS: POTASSIUM CL 40MEQ D5-0.45NACL 1,000 ML IV SCH ×2 (10:24→21:43)
--- NOTE | 2017-05-19 10:28 | NUR ---
Pt complaining of pain /10 "throat, neck, and stomach." Pt states that the fentanyl is giving her a headache. Called Dr. Lenz and received orders to administer Dilaudid and also to change her IVF to D51/2NS+40K and to administer potassium oral solution. Pt agreed to take medicine. Once this nurse administered Dilaudid, pt began screaming, "Oh it's in my head and now the back of my head and now... Oh, wow, the pain is gone!" Pt then stated, "I need to pee." This nurse began to assist the pt to the bathroom, but pt decided to lay back down in bed. This nurse asked the pt if she had to use the restroom, the pt stated, "No I will use it in a little bit." The pt laid down at the foot of the bed. This nurse did a neuro exam on the pt, the pt's strength is equal bilaterally and can answer person, place and time, but then when asked what her date of was, the pt stated, "I [place] a [place] at 15 years old... I pledge of allegience to the flag of the [place]... Yay!" And then began to clap her hands and wave her hands in the air while her eyes were closed. This nurse assisted the pt to move back up into bed where the head of the bed was. Bed alarm is on at this time due to safety reasons. Pt looked up at this nurse and stated, "Oh the pain is gone... There's my teeth, there's my teeth, there's my teeth... And there's my ears!" Will CTM.
[2017-05-19 14:35] VITALS: BP 144/89
[2017-05-19] MEDS ORDERED: PANTOPRAZOLE IV 40 MG VIAL. IVP ONE (17:00)
--- NOTE | 2017-05-19 18:52 | HP ---
ADMIT DATE: 05/18/2017 HISTORY OF PRESENT ILLNESS: The patient is a 62-year-old female patient who was admitted to the Emergency Room with a complaint of recurrent bouts of nausea, vomiting and abdominal pain. According to the patient, her symptoms started about last with abdominal pain, vomiting containing blood. She feels that her symptoms have persisted during this time. She has been unable to eat or drink anything other than small egg drop soup and some crackers. She does have a history of gastric bypass approximately 14 years ago. She also has chronic pain for which she uses opiates and pain medication. Apparently, she did have a bowel movement and her last bowel movement was the day before admission that was normal formed stool without any melena or hematochezia. She stated that she has not been taking any nonsteroidal anti-inflammatory medication as she had an episode of similar problem induced by nonsteroidal and was advised against them before. She was evaluated extensively in the Emergency Room and was found to have H and H of 11.6 and 36.2, which is not really far away from her previous admissions here in 2017. She was found to be extremely hypokalemic with a potassium of 2.7 and unfortunately was unable to tolerate potassium by mouth, so we are finishing it with IV and she was admitted to replenish her potassium to follow her closely and monitor her H and H and transfuse her if needed. PAST MEDICAL HISTORY: Significant for generalized osteoarthritis, chronic pain in her right knee for which she underwent a right total knee arthroplasty in 2013. She has also revisions, however, she continued to have pain in her right knee. Despite that, she has chronic methicillin-resistant Staphylococcus aureus infection, coronary artery disease with dual chamber pacemaker. She is known to have chronic gastroesophageal reflux disease, chronic back pain, B12 deficiency, atrial fibrillation, aortic valve repair, congestive heart failure. PAST SURGICAL HISTORY: Significant for right total knee arthroplasty and revision, coronary artery bypass graft surgery, gastric bypass surgery, and aortic valve repair. ALLERGIES: SHE IS ALLERGIC TO SULFA, AMLODIPINE, FAMOTIDINE, MORPHINE, AND COMPAZINE. MEDICATIONS: She is currently on following medications: She is on Biotin 1 mg daily, diazepam 5 mg daily, linaclotide for Linzess 290 mcg p.o. daily, metoprolol tartrate 100 mg twice a day, oxycodone/APAP 10/325 three times a day, Protonix 40 mg twice a day, and tramadol 25 mg every 6 hours. FAMILY HISTORY: Unremarkable. SOCIAL HISTORY: She is , lives with her . She does not smoke, drink alcohol, or use any recreational drugs. REVIEW OF SYSTEMS: The patient denied any blurring of vision. She denied any glaucoma or macular degeneration. Denied any earache, tinnitus or sensorineural deafness. Denied any nosebleeds, stuffy nose or postnasal drip. Denied any sore throat, sore tongue, toothache, hoarseness of voice, or difficulty swallowing. There are recurrent bouts of nausea, vomiting, initially coffee ground and then fresh blood. Denied any diarrhea. She actually will form with brown stool. Denied any dysuria, frequency, or hematuria. Denied any chest pain, shortness of breath, orthopnea, or paroxysmal nocturnal dyspnea. Denied any cough, phlegm or hemoptysis. Denied any chills, rigors, or fever. PHYSICAL EXAMINATION: GENERAL: In the Emergency Room, the patient looked well and was clearly in no apparent respiratory distress, slightly pale, but no jaundice, cyanosis, or thyromegaly. No jugular venous distension. No limb edema. VITAL SIGNS: Her heart rate was 78, blood pressure was 146/90, temperature was 98.3, respiratory rate was 16 and oxygen saturation was 100% on room air. HEAD, EYES, EARS, NOSE AND THROAT: Showed normocephalic, atraumatic. NECK: Supple. HEART: Showed normal first and second heart sounds with no gallop, rub or murmur. CHEST: Clear to auscultation. No crepitation or rhonchi. ABDOMEN: Distended, soft and tenderness mostly in the epigastric area. No guarding or rigidity. No organomegaly. Hernial orifice intact. Bowel sounds normal. NEUROLOGIC: She is awake, alert, responding appropriately. Cranial nerves intact. EXTREMITIES: She moves extremities without difficulty. She ambulates without assistance or assistive devices. LABORATORY DATA: In the Emergency Room showed a serum sodium of 144, potassium 2.7, chloride 104, bicarbonate 30, anion gap of 10, BUN 11, creatinine 0.9, estimated GFR was 63 mL per minute. Her glucose was 120, calcium was 9.7, magnesium was 1.8. Total bilirubin, AST, ALT, alkaline phosphatase were normal. Her total protein was 7.2, albumin 3.9. Her serum lipase was 69. Her white cell count was 13,800, hemoglobin 11.6, hematocrit 36.2, MCV 81 and platelet count of 239,000 with normal manual differential. Her nasal screen for MRSA by PCR was negative. ASSESSMENT AND PLAN: In summary, this is a 62-year-old female patient who was admitted with recurrent bouts of nausea, vomiting as well as what seemed to be fresh blood per rectum. She also was found to have marked hypokalemia. The patient was continued on IV fluid and pain medication. We will replenish her potassium. Continue with antiemetic and clear liquid diet as tolerated. We will follow her H and H closely and decide on further management accordingly. JENIFFER CAMACHO MD DR: GUERLINE/erika JOB#: [id number] / [id number]
--- NOTE | 2017-05-19 19:19 | PN ---
DATE: 05/19/2017 SUBJECTIVE: The patient is resting slightly propped up in bed, no apparent distress. She continued to have dry heaves, but has not had any fresh blood, continued to have abdominal pain. She has not been able to tolerate even water. OBJECTIVE: GENERAL: When I examined her, she looked well and was clearly in no apparent respiratory distress, pale, but no jaundice, cyanosis, lymphadenopathy or thyromegaly. No jugular venous distension. No lower limb edema. VITAL SIGNS: Her heart rate was 78, blood pressure 144/89, temperature was 98.3, respiratory rate was 16 and oxygen saturation was 94%. The rest of examination is stable. ABDOMEN: There is mild tenderness in the epigastric area, but no guarding or rigidity. No organomegaly. LABORATORY DATA: Showed that her white cell count is down to 8600, hemoglobin 10, hematocrit 30, MCV 81 and platelet count of 199,000. Looking at her lab value, she was here last September and her H and H is almost the same. Her chemistry showed that her sodium is slightly up in the morning and the serum sodium was 144, potassium 3.3, chloride was 108, bicarbonate 28, anion gap of 8, BUN 10, creatinine 0.6, estimated GFR was 100 mL per minute. Her glucose was 96, calcium was 8.6. Serum lipase was 69. Her potassium has improved further in afternoon at 3.9 mEq mg/dL. ASSESSMENT: Recurrent bouts of nausea, vomiting and hematemesis. The patient at least H and H has not really changed dramatically. We will continue to follow her H and H and obviously transfuse her as needed. We will avoid all nonsteroidal anti-inflammatory medication. We will continue with IV Protonix, antiemetics, pain medication and clear liquid diet and decide on further management according to her response. JENIFFER CAMACHO MD DR: GUERLINE/erika JOB#: [id number] / [id number]
[2017-05-19 19:42] VITALS: BP 135/57
[2017-05-19 23:00] VITALS: BP 102/63
[2017-05-20] MEDS: HYDROmorphone PF 2 MG/ML VIAL IV PRN ×5 (04:28→23:27)
[2017-05-20 05:02] VITALS: BP 155/83
[2017-05-20 06:32] LABS: HEMATOCRIT 28.6 % (36.0-47.0); HEMOGLOBIN 9.2 g/dL (12.0-15.5); RED BLOOD COUNT 3.53 x10^6/uL (3.50-5.40); RED CELL DISTRIBUTION WIDTH 15.6 % (11.5-14.5); WHITE BLOOD COUNT 6.3 x10^3/uL (4.0-11.0)
[2017-05-20 06:42] LABS: ALBUMIN 2.8 g/dL (3.4-5.0); ALBUMIN/GLOBULIN RATIO 1.1 (1.0-1.7); CALCIUM 8.5 mg/dL (8.5-10.1); CREATININE 0.6 mg/dL (0.6-1.0); GFR 100.6; TOTAL BILIRUBIN 0.5 mg/dL (0.2-1.0); TOTAL PROTEIN 5.3 g/dL (6.4-8.2)
[2017-05-20] MEDS ORDERED: PANTOPRAZOLE IV 40 MG VIAL. IVP SCH (07:30)
[2017-05-20] MEDS ORDERED: CHLORDIAZEPOXIDE PO PRN (09:00)
[2017-05-20] MEDS ORDERED: CLIDINIUM PO PRN (09:00)
[2017-05-20] MEDS: SUCRALFATE 1 GM/10 ML ORAL.SUSP. PEG SCH ×4 (09:55→21:48)
[2017-05-20] MEDS: POTASSIUM CL 40MEQ D5-0.45NACL 1,000 ML IV SCH (09:56)
[2017-05-20 10:48] VITALS: BP 142/67
[2017-05-20] MEDS ORDERED: CLIDINIUM PO ONE (11:00)
[2017-05-20] MEDS ORDERED: CHLORDIAZEPOXIDE PO ONE (11:00)
[2017-05-20] MEDS ORDERED: ONDANSETRON PF 4 MG/2 ML VIAL. IV ONE (12:30)
[2017-05-20] MEDS ORDERED: ONDANSETRON PF 4 MG/2 ML VIAL. IV PRN (12:30)
[2017-05-20] MEDS: PANTOPRAZOLE IV 80 MG in IV NORMAL SALINE 100ML 100 ML IV SCH ×2 (13:31→23:26)
--- NOTE | 2017-05-20 13:54 | NUR ---
IP: patient reports current MRSA infection on face. Requires contact precautions until 2 negative results 7 days apart.
[2017-05-20 15:03] VITALS: BP 182/93
[2017-05-20 19:59] VITALS: BP 143/82
[2017-05-20 23:42] VITALS: BP 137/75
[2017-05-21] MEDS: POTASSIUM CL 40MEQ D5-0.45NACL 1,000 ML IV SCH (01:24)
--- NOTE | 2017-05-21 02:35 | PN ---
DATE: 05/20/2017 SUBJECTIVE: This is a 62-year-old female who was admitted by Dr. Humza Lenz with nausea, vomiting and apparently hemetemesis with delusions on some change in her H and H, however, they were the same as previous admission. She has not had any emesis since yesterday; however, still having what seems like spasm of her diaphragm and her esophagus, she was having them when I was in the room and I prescribed Levsin as well as a Librax and she immediately threw them up. They did not have time to be digested, she just threw them up. Otherwise, had been tolerating clear liquids without a problem and she felt the Protonix that she had yesterday had helped her. I did want to send her home today, but probably will not be able to. OBJECTIVE: VITAL SIGNS: Blood pressure is 142/67, pulse 83, respirations 20, pulse ox 97% on room air and that was 91% on room air, but this when she was throwing up and 98.8 temperature. GENERAL APPEARANCE: Color is pale. HEENT: Tongue was moist. NECK: Supple. LUNGS: Clear in all barrios. CARDIOVASCULAR: Regular rhythm and rate. ABDOMEN: With a loud borborygmus bowel sounds, tender in the midepigastrium. No masses palpated. EXTREMITIES: Without edema. LABORATORY DATA: Hemoglobin is 9.2, hematocrit 28.6. Her admission hemoglobin was 11.6, however, that was prior to IV fluids. Potassium was 4.0 today. MRSA is negative. ASSESSMENT: 1. Recurrent nausea and vomiting. 2. No evidence of hematemesis. 3. Questionable esophageal stricture versus spasm. 4. Hypokalemia, resolved. 5. Normochromic normocytic anemia, I believe this is chronic. PLAN: We are going to do Protonix drip x 1. She may have Zofran. I want to do a swallowing study at the bedside, want to do a barium swallow, but she does not feel like she could tolerate that. Otherwise, we will have to be transferred if she cannot keep down fluids. RACHEAL NDIAYE DO DR: ASHLYN/erika JOB#: [id number] / [id number]
[2017-05-21 06:16] VITALS: BP 104/57
[2017-05-21 06:24] LABS: BASO # 0.1 x10^3/uL (0.0-0.2); BASO % 1 % (0-3); EOS # 0.1 x10^3/uL (0.0-0.7); EOS % 2 % (0-3); HEMATOCRIT 32.6 % (36.0-47.0); HEMOGLOBIN 10.5 g/dL (12.0-15.5); LYMPH # 2.5 x10^3/uL (1.0-4.8); LYMPH % 38 % (24-48); MEAN CORPUSCULAR HEMOGLOBIN 26 pg (25-35); MEAN CORPUSCULAR HGB CONC 32 g/dL (31-37); MEAN CORPUSCULAR VOLUME 81 fL (79-100); MONO # 0.7 x10^3/uL (0.0-1.1); MONO % 11 % (0-9); NEUT # 3.3 x10^3uL (1.8-7.7); NEUT % 49 % (31-73); PLATELET COUNT 213 x10^3/uL (140-400); RED BLOOD COUNT 4.01 x10^6/uL (3.50-5.40); RED CELL DISTRIBUTION WIDTH 15.9 % (11.5-14.5); WHITE BLOOD COUNT 6.8 x10^3/uL (4.0-11.0)
[2017-05-21 06:39] LABS: ALBUMIN 3.2 g/dL (3.4-5.0); ALBUMIN/GLOBULIN RATIO 1.1 (1.0-1.7); CALCIUM 8.6 mg/dL (8.5-10.1); CREATININE 0.8 mg/dL (0.6-1.0); GFR 72.2; MAGNESIUM 1.9 mg/dL (1.8-2.4); TOTAL BILIRUBIN 0.6 mg/dL (0.2-1.0); TOTAL PROTEIN 6.1 g/dL (6.4-8.2)
[2017-05-21] MEDS: SUCRALFATE 1 GM/10 ML ORAL.SUSP. PEG SCH ×4 (07:52→20:40)
[2017-05-21] MEDS: HYDROmorphone PF 2 MG/ML VIAL IV PRN ×3 (07:56→19:20)
[2017-05-21] MEDS ORDERED: PANTOPRAZOLE IV 40 MG in IV NORMAL SALINE 100ML 100 ML IV SCH (09:00)
[2017-05-21] MEDS ORDERED: MVI, ADULT NO.4 WITH VIT K 10 ML, FOLIC ACID 1 MG, THIAMINE 100 MG in IV DEXTROSE 5 %-0... IV SCH ×4 (09:00)
[2017-05-21] MEDS ORDERED: PYRIDOXINE 100 MG/ML VIAL. IV ONE (09:00)
[2017-05-21 11:00] VITALS: BP 148/78
[2017-05-21] MEDS ORDERED: PANTOPRAZOLE IV 40 MG VIAL. IVP ONE (12:45)
--- NOTE | 2017-05-21 15:13 | RAD ---
CT abdomen/pelvis with contrast 05/21/2017 3:01 PM Indication: Abdominal pain Comparison: CT abdomen/pelvis 01/12/2015 Technique: Multiple axial CT images of the abdomen and pelvis were obtained after intravenous administration of 75 mL Omnipaque 300. Coronal and sagittal reformats are provided. Findings: Visualized portions of the lung bases appear clear. Cardiac pacer wires are partially profile. Heart size is within normal limits. No suspicious hepatic mass is identified. There is mild diffuse hepatic steatosis, improved since the prior examination from 01/12/2015. The spleen is normal in appearance. Adrenal glands are normal. No suspicious pancreatic abnormality is visualized. Gallbladder is present without adjacent inflammatory changes. The abdominal aorta is normal in course and caliber. There are no pathologically enlarged lymph nodes in the abdomen and pelvis. There is no abdominal free fluid. There is no free intraperitoneal air. 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 Kidneys enhance symmetrically. No suspicious renal mass is visualized. Left kidney is normal in appearance. There is no hydronephrosis. Partial gastrectomy changes are visualized. There is a small hiatal hernia. There are no dilated loops of small or large bowel. There is no evidence for bowel obstruction. Appendix is not definitively visualized and may be surgically absent. The urinary bladder is within normal limits given degree of distention. No suspicious pelvic masses are identified. Trace free fluid is identified within the pelvis. No suspicious osseous lesions are identified. There is ankylosis of the inferior right sacroiliac joint and superior left sacroiliac joint. Impression: 1. No acute abnormality is identified in the abdomen and pelvis. 2. Postoperative changes are identified involving the stomach, likely from partial gastrectomy or gastric bypass. No evidence for bowel obstruction. Similar appearance of a small hiatal hernia. 3. Mild diffuse hepatic steatosis, subjectively improved since 01/12/2015. PQRS Compliance Statement: One or more of the following individualized dose reduction techniques were utilized for this examination: 1. Automated exposure control 2. Adjustment of the mA and/or kV according to patient size 3. Use of iterative reconstruction technique
[2017-05-21 16:40] VITALS: BP 166/79
--- NOTE | 2017-05-21 18:00 | PN ---
DATE: 05/21/2017 CURRENT PROBLEMS: 1. Recurrent nausea with dry heaves. 2. Purported hematemesis. 3. Questionable esophageal stricture versus spasm. 4. Hypokalemia. 5. Normochromic normocytic anemia. SUBJECTIVE: The patient is still having a lot of problems with her stomach with spasming, with a lot of gas, with burping, dry heaves, foamy material, no bile. He is really not taking anything n.p.o. Continues on IV fluids. Today, I offered to transfer her to [place] for definitive care. I also had wanted to do a barium swallow, but she states she cannot swallow; for more definitive care as far as endodontic assistant goes. She wants to try clear liquids today, more Protonix and see if things can get a little bit better as she does feel slightly better today. OBJECTIVE: VITAL SIGNS: Blood pressure 104/57, pulse 84, temperature 98.2, pulse ox 96% on room air. GENERAL: Color is somewhat pale. HEENT: Tongue was moist. NECK: She appears decently hydrated. LUNGS: Clear. CARDIOVASCULAR: Regular rhythm and rate. ABDOMEN: Tender, but soft. Does have a lot of mid epigastric pain, is having some burping in such as well. Anyway, reviewed an old CT of the abdomen and pelvis with contrast, which was showing reflux and esophagitis from 2014. PLAN: Repeat abdominal and pelvis CT with try a banana bag with Protonix and go from there. RACHEAL NDIAYE DO DR: ASHLYN/erika JOB#: [id number] / [id number]
[2017-05-21 20:08] VITALS: BP 172/87
[2017-05-21 23:18] VITALS: BP 133/73
[2017-05-22] MEDS: POTASSIUM CL 40MEQ D5-0.45NACL 1,000 ML IV SCH (00:21)
[2017-05-22] MEDS: HYDROmorphone PF 2 MG/ML VIAL IV PRN ×4 (00:24→13:46)
[2017-05-22 05:43] VITALS: BP 145/68
[2017-05-22 06:36] LABS: BASO # 0.1 x10^3/uL (0.0-0.2); BASO % 1 % (0-3); EOS # 0.1 x10^3/uL (0.0-0.7); EOS % 2 % (0-3); HEMATOCRIT 31.4 % (36.0-47.0); HEMOGLOBIN 10.2 g/dL (12.0-15.5); LYMPH # 1.3 x10^3/uL (1.0-4.8); LYMPH % 19 % (24-48); MEAN CORPUSCULAR HEMOGLOBIN 26 pg (25-35); MEAN CORPUSCULAR HGB CONC 33 g/dL (31-37); MEAN CORPUSCULAR VOLUME 81 fL (79-100); MONO # 0.9 x10^3/uL (0.0-1.1); MONO % 13 % (0-9); NEUT # 4.5 x10^3uL (1.8-7.7); NEUT % 66 % (31-73); PLATELET COUNT 191 x10^3/uL (140-400); RED BLOOD COUNT 3.87 x10^6/uL (3.50-5.40); RED CELL DISTRIBUTION WIDTH 15.9 % (11.5-14.5); WHITE BLOOD COUNT 6.8 x10^3/uL (4.0-11.0)
[2017-05-22 06:55] LABS: CALCIUM 8.5 mg/dL (8.5-10.1); CREATININE 0.7 mg/dL (0.6-1.0); GFR 84.2; MAGNESIUM 1.8 mg/dL (1.8-2.4); POTASSIUM 3.5 mmol/L (3.5-5.1); TOTAL BILIRUBIN 0.5 mg/dL (0.2-1.0)
[2017-05-22] MEDS: SUCRALFATE 1 GM/10 ML ORAL.SUSP. PEG SCH ×2 (08:02→11:34)
[2017-05-22 10:53] VITALS: BP 175/83
--- NOTE | 2017-05-22 13:50 | NUR ---
NSG NOTE; TRANSFER TO [facility] AT [address] [facility] BY EMS PERSONNEL
--- NOTE | 2017-05-22 16:20 | PDOC3 ---
Discharge Summary Visit Information Date of Admission: May 18, 2017 Date of Discharge: May 22, 2017 Final Diagnosis Problems Medical Problems: (1) Gastritis Status: Acute (2) Hypokalemia Status: Acute (3) Upper GI bleed Status: Acute 1. Recurrent nausea with dry heaves. 2. Purported hematemesis. 3. Questionable esophageal stricture versus spasm. 4. Hypokalemia. 5. Normochromic normocytic anemia. 6. Fatty liver 7. GERD 8. History of esophagitis 2014 9. normochromic normocytic anemia Problems: Brief Hospital Course Allergies Allergies Coded Allergies Type Severity Reaction Last Updated Verified Sulfa (Sulfonamide Antibiotics) Allergy Intermediate 01/07/16 Yes morphine Allergy Intermediate 01/07/16 Yes prochlorperazine Allergy Intermediate 01/07/16 Yes amlodipine Allergy Mild Swelling 01/07/16 Yes I S O L A T I O N *CONTACT* Allergy Unknown 05/20/17 Yes cimetidine Adverse Reaction Intermediate Constipation 01/07/16 Yes Vital Signs Vital Signs Date Time Temp Pulse Resp B/P (MAP) Pulse Ox O2 Delivery O2 Flow Rate FiO2 05/22/17 10:53 98.2 60 14 175/83 (113) 99 Room Air Lab Results Laboratory Tests Test 05/21/17 05:51 05/22/17 06:01 White Blood Count 6.8 x10^3/uL (4.0-11.0) 6.8 x10^3/uL (4.0-11.0) Red Blood Count 4.01 x10^6/uL (3.50-5.40) 3.87 x10^6/uL (3.50-5.40) Hemoglobin 10.5 g/dL (12.0-15.5) 10.2 g/dL (12.0-15.5) Hematocrit 32.6 % (36.0-47.0) 31.4 % (36.0-47.0) Mean Corpuscular Volume 81 fL (79-100) 81 fL (79-100) Mean Corpuscular Hemoglobin 26 pg (25-35) 26 pg (25-35) Mean Corpuscular Hemoglobin Concent 32 g/dL (31-37) 33 g/dL (31-37) Red Cell Distribution Width 15.9 % (11.5-14.5) 15.9 % (11.5-14.5) Platelet Count 213 x10^3/uL (140-400) 191 x10^3/uL (140-400) Neutrophils (%) (Auto) 49 % (31-73) 66 % (31-73) Lymphocytes (%) (Auto) 38 % (24-48) 19 % (24-48) Monocytes (%) (Auto) 11 % (0-9) 13 % (0-9) Eosinophils (%) (Auto) 2 % (0-3) 2 % (0-3) Basophils (%) (Auto) 1 % (0-3) 1 % (0-3) Neutrophils # (Auto) 3.3 x10^3uL (1.8-7.7) 4.5 x10^3uL (1.8-7.7) Lymphocytes # (Auto) 2.5 x10^3/uL (1.0-4.8) 1.3 x10^3/uL (1.0-4.8) Monocytes # (Auto) 0.7 x10^3/uL (0.0-1.1) 0.9 x10^3/uL (0.0-1.1) Eosinophils # (Auto) 0.1 x10^3/uL (0.0-0.7) 0.1 x10^3/uL (0.0-0.7) Basophils # (Auto) 0.1 x10^3/uL (0.0-0.2) 0.1 x10^3/uL (0.0-0.2) Sodium Level 141 mmol/L (136-145) 141 mmol/L (136-145) Potassium Level 4.0 mmol/L (3.5-5.1) 3.5 mmol/L (3.5-5.1) Chloride Level 105 mmol/L (98-107) 105 mmol/L (98-107) Carbon Dioxide Level 29 mmol/L (21-32) 28 mmol/L (21-32) Anion Gap 7 (6-14) 8 (6-14) Blood Urea Nitrogen 6 mg/dL (7-20) 4 mg/dL (7-20) Creatinine 0.8 mg/dL (0.6-1.0) 0.7 mg/dL (0.6-1.0) Estimated GFR (Cockcroft-Gault) 72.2 84.2 BUN/Creatinine Ratio 8 (6-20) 6 (6-20) Glucose Level 77 mg/dL (70-99) 91 mg/dL (70-99) Calcium Level 8.6 mg/dL (8.5-10.1) 8.5 mg/dL (8.5-10.1) Magnesium Level 1.9 mg/dL (1.8-2.4) 1.8 mg/dL (1.8-2.4) Total Bilirubin 0.6 mg/dL (0.2-1.0) 0.5 mg/dL (0.2-1.0) Aspartate Amino Transf (AST/SGOT) 21 U/L (15-37) 16 U/L (15-37) Alanine Aminotransferase (ALT/SGPT) 17 U/L (14-59) 15 U/L (14-59) Alkaline Phosphatase 87 U/L (46-116) 88 U/L (46-116) Total Protein 6.1 g/dL (6.4-8.2) 6.0 g/dL (6.4-8.2) Albumin 3.2 g/dL (3.4-5.0) 3.0 g/dL (3.4-5.0) Albumin/Globulin Ratio 1.1 (1.0-1.7) 1.0 (1.0-1.7) Brief Hospital Course Ms. Viveros is a 62 old [sex] who presented with [ ] HISTORY OF PRESENT ILLNESS: The patient is a 62-year-old female patient who was admitted to the Emergency Room with a complaint of recurrent bouts of nausea, vomiting and abdominal pain. According to the patient, her symptoms started about last with abdominal pain, vomiting containing blood. She feels that her symptoms have persisted during this time. She has been unable to eat or drink anything other than small egg drop soup and some crackers. She does have a history of gastric bypass approximately 14 years ago. She also has chronic pain for which she uses opiates and pain medication. Apparently, she did have a bowel movement and her last bowel movement was the day before admission that was normal formed stool without any melena or hematochezia. She stated that she has not been taking any nonsteroidal anti-inflammatory medication as she had an episode of similar problem induced by nonsteroidal and was advised against them before. She was evaluated extensively in the Emergency Room and was found to have H and H of 11.6 and 36.2, which is not really far away from her previous admissions here in 2017. She was found to be extremely hypokalemic with a potassium of 2.7 and unfortunately was unable to tolerate potassium by mouth, so we are finishing it with IV and she was admitted to replenish her potassium to follow her closely and monitor her H and H and transfuse her if needed.. HAS BEEN UNABLE TO KEEP ANYTHING DOWN AND SPITTING UP WHITE FOAM. UNABLE TO DO A BARIUM SWALLOW OR UGI. PERSISTENT DRY HEAVES IN SPITE OF ZOFRAN, BANANA BAG, VITAMIN B6 AND, PROTONIX AND CARAFATE.. FEEL AT THIS POINT THAT SHE NEEDS AN EGD HER CT OF THE ABDOMEN AND PELVIS WERE NORMAL EXCEPT FOR MILD DIFFUSE FATTY LIVER. DR. CAREY HAS ACCEPTED. Discharge Information Condition at Discharge: Stable Disposition/Orders: D/C to Another Facility Dischare Medications Current Medications Sodium Chloride 1,000 ml @ 1,000 mls/hr 1X ONCE IV Last administered on 20:00; Start 05/18/17 at 20:00; Stop 05/18/17 at 20:59; Status DC Multi-Ingredient Mouthwash/Gargle (Gi Cocktail) 20 ml 1X ONCE PO Last administered on 05/18/17 20:00; Start 05/18/17 at 20:00; Stop 05/18/17 at 20:01; Status DC Potassium Chloride 100 ml @ 50 mls/hr 1X ONCE IV Last administered on 21:00; Start 05/18/17 at 21:00; Stop 05/18/17 at 22:59; Status DC Fentanyl Citrate (Fentanyl 2ml Vial) 25 mcg 1X ONCE IV Last administered on 21:30; Start 05/18/17 at 21:30; Stop 05/18/17 at 21:31; Status DC Ondansetron HCl (Zofran) 4 mg PRN Q4HRS PRN IV NAUSEA/VOMITING Last administered on 05/18/17 23:52; Start 05/18/17 at 22:00; Stop 05/19/17 at 21:59; Status DC Fentanyl Citrate (Fentanyl 2ml Vial) 25 mcg PRN Q1HR PRN IV SEVERE PAIN Last administered on 05/19/17at 01:50; Start 05/18/17 at 22:00; Stop 05/19/17 at 21:59; Status DC Pantoprazole Sodium (Protonix Vial) 40 mg 1X ONCE IVP Last administered on 05/18at 23:52; Start 05/18/17 at 22:30; Stop 05/18/17 at 22:31; Status DC Info (Non-Icu Electrolyte Protocol) 1 ea CONT PRN PRN MC PER PROTOCOL; Start at 22:00; Stop 05/22/17 at 13:52; Status DC Potassium Chloride/Dextrose/ Sod Cl 1,000 ml @ 75 mls/hr [id number] IV Last administered on 05/19/17at 01:35; Start 05/19/17 at 00:30; Stop 05/19/17 at 09:59; Status DC Potassium Chloride (KCl Oral Soln) 40 meq 1X ONCE PO Last administered on at 10:08; Start 05/19/17 at 10:00; Stop 05/19/17 at 10:01; Status DC Potassium Chloride/Dextrose/ Sod Cl 1,000 ml @ 75 mls/hr [id number] IV Last administered on 05/22/17at 00:21; Start 05/19/17 at 10:00; Stop 05/22/17 at 13:52; Status DC Hydromorphone HCl (Dilaudid) 2 mg PRN Q4HRS PRN IV PAIN Last administered on 05/22/17at 13:46; Start 05/19/17 at 10:00; Stop 05/22/17 at 13:52; Status DC Pantoprazole Sodium (Protonix Vial) 40 mg DAILYAC IVP Last administered on at 08:09; Start 05/20/17 at 07:30; Stop 05/20/17 at 12:32; Status DC Pantoprazole Sodium (Protonix Vial) 40 mg 1X ONCE IVP Last administered on 05/19at 18:24; Start 05/19/17 at 17:00; Stop 05/19/17 at 17:01; Status DC Chlordiazepoxide/ Clidinium (Librax) 1 cap PRN QID PRN PO STOMACH CRAMPING; Start 05/20/17 at 09:00; Stop 05/22/17 at 13:52; Status DC Chlordiazepoxide/ Clidinium (Librax) 1 cap 1X ONCE PO Last administered on 05/20at 11:30; Start 05/20/17 at 11:00; Stop 05/20/17 at 11:01; Status DC Pantoprazole Sodium 80 mg/ Sodium Chloride 100 ml @ 10 mls/hr Q10H IV Last administered on 05/20/17at 23:26; Start 05/20/17 at 13:00; Stop 05/21/17 at 12:41; Status DC Sucralfate (Carafate) 1 gm QIDACHS PEG Last administered on 05/22/17at 11:34; Start 05/20/17 at 09:45; Stop 05/22/17 at 13:52; Status DC Ondansetron HCl (Zofran) 4 mg PRN Q6HRS PRN IV NAUSEA/VOMITING; Start 05/20/17 at 12:30; Stop 05/22/17 at 13:52; Status DC Ondansetron HCl (Zofran) 8 mg 1X ONCE IV Last administered on 05/20/17at 12:37; Start 05/20/17 at 12:30; Stop 05/20/17 at 12:31; Status DC Multivitamins/ Minerals 10 ml/ Folic Acid 1 mg/ Thiamine HCl 100 mg/Dextrose/ Sodium Chloride 1,011.2 ml @ 100.009 mls/hr DAILY IV Last administered on at 13:12; Start 05/21/17 at 09:00; Stop 05/22/17 at 13:52; Status DC Pyridoxine HCl (Vitamin B6) 100 mg 1X ONCE IV Last administered on 05/21/17at 12 :58; Start 05/21/17 at 09:00; Stop 05/21/17 at 09:02; Status DC Pantoprazole Sodium 40 mg/ Sodium Chloride 100 ml @ 10 mls/hr Q10H IV ; Start 05/21/17 at 09:00; Status UNV Pantoprazole Sodium (Protonix Vial) 40 mg 1X ONCE IVP Last administered on 05/21at 12:57; Start 05/21/17 at 12:45; Stop 05/21/17 at 12:46; Status DC Active Scripts Active Percocet 10-325 Mg Tablet (Oxycodone Hcl/Acetaminophen) 1 Each Tablet 1 Tab PO TID 30 Days Reported Tramadol Hcl (Tramadol HCl) 50 Mg Tablet 25 Mg PO PRN Q6HRS PRN Protonix (Pantoprazole Sodium) 40 Mg Tablet.dr 1 Tab PO BID Metoprolol Tartrate 100 Mg Tablet 1 Tab PO BID Linzess (Linaclotide) 290 Mcg Capsule 290 Mcg PO DAILY Valium (Diazepam) 5 Mg Tablet 5 Mg PO DAILY PRN Biotin 1 Mg Capsule 1 Mg PO DAILY Patient Instructions Patient Instuctions MEDICATIONS DONE. TRANSFER TO [facility] FOR A LEVEL OF CARE NOT AVAILABLE HERE-GI AND EGD. RACHEAL NDIAYE DO May 22, 2017 16:20
== END 2017-05-22 13:48 | disposition short-term general hospital (02) | DRG 640 ==
LOC: ER 19:23 → 1 SOUTH 22:15
PROVIDERS: ADMIT Internal Medicine; ATTEND Internal Medicine
DX: E87.6 Hypokalemia (principal); K29.71 Gastritis, unspecified, with bleeding; I11.0 Hypertensive heart disease with heart failure; F22 Delusional disorders; I50.9 Heart failure, unspecified; K76.0 Fatty (change of) liver, not elsewhere classified; I48.91 Unspecified atrial fibrillation; K22.2 Esophageal obstruction; K22.4 Dyskinesia of esophagus; D64.9 Anemia, unspecified; G89.29 Other chronic pain; I25.10 Atherosclerotic heart disease of native coronary artery without angina pectoris; K21.9 Gastro-esophageal reflux disease without esophagitis; M15.9 Polyosteoarthritis, unspecified; F32.9 Major depressive disorder, single episode, unspecified; F41.9 Anxiety disorder, unspecified; Z96.651 Presence of right artificial knee joint; Z90.710 Acquired absence of both cervix and uterus; Z86.14 Personal history of Methicillin resistant Staphylococcus aureus infection; Z95.1 Presence of aortocoronary bypass graft; Z98.84 Bariatric surgery status; Z88.2 Allergy status to sulfonamides; Z88.5 Allergy status to narcotic agent; Z88.8 Allergy status to other drugs, medicaments and biological substances; Z95.0 Presence of cardiac pacemaker
CPT/HCPCS: 36415; 74177; 80048; 80053; 83690; 83735; 84132; 85025; 85027; 87641; 96361; 96365; 96366; 96375; C9113; J1170; J2405; J3010; J3415; J3480; J7042; 92610; 99285-25; J7030

== ENCOUNTER → 2017-12-27 | Outpatient (CLI) | payer MEDICARE, OTHER ==
[~2017-12-27] MED LIST changes: -SPIR25TA3 PO; +SPIR25TA5 PO; +TRAM50TA PO
== END | disposition home or self-care (01) ==
LOC: SURG 09:29
PROVIDERS: ATTEND Anesthesiology Pain Medicine
DX: M25.561 Pain in right knee (principal); G89.29 Other chronic pain; I25.10 Atherosclerotic heart disease of native coronary artery without angina pectoris; K21.9 Gastro-esophageal reflux disease without esophagitis; I48.91 Unspecified atrial fibrillation; M54.5 Low back pain; E53.8 Deficiency of other specified B group vitamins; I11.0 Hypertensive heart disease with heart failure; F11.20 Opioid dependence, uncomplicated; I50.89 Other heart failure; Z95.0 Presence of cardiac pacemaker; Z96.651 Presence of right artificial knee joint
CPT/HCPCS: 99215